=== PATIENT | male | born 1980 | race Caucasian/White ===

== ENCOUNTER 2019-07-05 17:59 | Emergency (ER) | payer MEDICAID ==
[~2019-07-05] VITALS: Ht 182.9 cm; Wt 82.6 kg
--- NOTE | 2019-07-05 18:00 | NUR ---
Admit a 38 yo male pt, ambulatory to rm. 2A with a C/O wound laceration on his left point finger. Wound site cleansed with NS and left open for MD to see.
[2019-07-05] MEDS ORDERED: LIDOCAINE HCL 1% 20 ML VIAL IJ ONE (18:45)
--- NOTE | 2019-07-05 18:51 | NUR ---
Suture set at bedside. Xray done at bedside.
--- NOTE | 2019-07-05 19:00 | NUR ---
Report given to
--- NOTE | 2019-07-05 19:01 | NUR ---
received report from Binta Arreola RN.
--- NOTE | 2019-07-05 19:16 | NUR ---
patient out of bed, self ambulatory. Stated he was going outside to grab his sweater.
--- NOTE | 2019-07-05 19:37 | NUR ---
Dr. Clay at bedside providing treatment
[2019-07-05 20:21] VITALS: BP 130/81
--- NOTE | 2019-07-05 20:22 | NUR ---
Patient discharged to home in stable conditon. Written and verbal after care instructions given. Patient verbalizes understanding of instructions. Patient ambulatory with steady gait. exit care paockage and personal belongings taken home with the patient at discharge. Patient denies any pain/discomfort at this time.
== END 2019-07-05 20:22 | disposition home or self-care (01) ==
LOC: ER 18:01
DX: S61.211A Laceration without foreign body of left index finger without damage to nail, initial encounter (principal); W26.8XXA Contact with other sharp object(s), not elsewhere classified, initial encounter; Y93.89 Activity, other specified; Y92.89 Other specified places as the place of occurrence of the external cause; Y99.8 Other external cause status
CPT/HCPCS: 12002; 73140; 99283; J3490; A4217; A4663